=== PATIENT | female | born 1940 | race Caucasian/White ===

== ENCOUNTER → 2017-08-13 11:05 | Outpatient (CLI) | payer MEDICARE, OTHER ==
[2016-08-18 13:28] VITALS: BMI 29.1
[~2017-08-13 11:05] MED LIST: ACETAMINOPHEN-C1 TAB PO; ATIVAN0.5 MG PO; BIOTIN5 MG PO; CALCIUM 600+D T1 TA1 PO; CALTRATE-600600 MG; CHILDREN'S ASPI81 MG PO; COLACE100 MG PO; COREG12.5 MG PO; DULCOLAX10 MG/SUPP RC; EVISTA60 MG PO; K-DUR20 MEQ PO; LEVAQUIN250 MG PO; MEGACE400 MG/10 PO; MIRALAX17 GM PO; MOTRIN400 MG PO; MULTIPLE VITAMI1 TA1 PO; NARCAN INJ0.4 MG/ML IV; NORCO 10/325 TA1 TA1 PO; NORCO 5/325 TAB1 TA1 PO; ONDANSETRON4 MG/2 M3 IV; PHENERGAN25 M1 PO; POVIDONE-IODINE30 GM TP; PRAVACHOL40 MG PO; PRILOSEC20 MG PO; PROTONIX40 MG PO; PROVENTIL/2.5 MG/3 M NEB; RESTORIL15 MG PO; SENOKOT-S TABLE1 TAB PO; SYSTANE 0.3-0.4%5 ML EACH EYE; TUMS500 MG PO; ZOLOFT50 MG PO
[2017-08-13 11:52] LABS: ALBUMIN 3.4 g/dL (3.4-5.0); ALKALINE PHOSPHATASE 60 U/L (46-116); ALT (SGPT) 24 U/L (10-68); BILIRUBIN - TOTAL 0.41 mg/dL (0.2-1.3); CALC OSMOLALITY 279 mosm/kg (275-300); CALCIUM 8.7 mg/dL (8.5-10.1); CARBON DIOXIDE 26.5 mmol/L (21.0-32.0); CHLORIDE - SERUM 107 mmol/L (98-107); CHOLESTEROL, TOTAL 164 mg/dL (0-200); CREATININE - SERUM 0.6 mg/dL (0.6-1.3); GLUCOSE 94 mg/dL (74-106); HDL CHOLESTEROL 41 mg/dL (32-96); LDL CHOLESTEROL 92 mg/dL (0-100); LDL-HDL RATIO 2.2 ratio (1.5-3.5); POTASSIUM - SERUM 3.8 mmol/L (3.5-5.1); PROTEIN - SERUM 7.7 g/dL (6.4-8.2); SODIUM 141 mmol/L (136-145); TRIGLYCERIDE 159 mg/dL (30-200); UREA NITROGEN 10 mg/dL (7-18); eGFR NON AFRICAN AMERICAN > 90 mL/min (90-120)
== END | disposition home or self-care (01) ==
LOC: D.LABREF 11:05
PROVIDERS: Emergency Medicine
DX: I25.10 Atherosclerotic heart disease of native coronary artery without angina pectoris (principal); E78.5 Hyperlipidemia, unspecified

== ENCOUNTER → 2018-07-27 18:35 | Outpatient (CLI) | payer MEDICARE, OTHER ==
[2016-08-18 13:28] VITALS: BMI 29.1
[2018-07-27 19:47] LABS: BASOPHILS 0.8 % (0-2); EOSINOPHILS 4.1 % (0-7); HEMATOCRIT 39.3 % (36.0-48.0); HEMOGLOBIN 12.3 g/dL (12-16); IMMATURE GRANULOCYTES 0.4 % (0-5); LYMPHOCYTES 33.8 % (15-50); MCH 26.7 pg (26.0-34.0); MCHC 31.3 g/dL (31.0-37.0); MCV 85.4 fL (80.0-100.0); MEAN PLATELET VOLUME 9.2 fL (7.4-10.4); MONOCYTES 6.1 % (2-11); NEUTROPHILS 54.8 % (40-80); RDW 15.9 % (11.5-14.5)
[2018-07-27 20:06] LABS: PLATELET COUNT 291 10x3/uL (130-400)
[2018-07-27 20:09] LABS: APPEARANCE CLEAR (CLEAR); COLOR YELLOW (YELLOW); NITRITE NEGATIVE (NEGATIVE); PROTEIN TRACE mg/dL (NEGATIVE)
[2018-07-27 20:10] LABS: BILIRUBIN NEGATIVE (NEGATIVE); GLUCOSE NEGATIVE (NEGATIVE); KETONE NEGATIVE (NEGATIVE); RED CELLS - URINE 0-5 /hpf (0-5); UROBILINOGEN NORMAL (NORMAL)
[2018-07-27 20:11] LABS: BACTERIA MANY /hpf (NONE SEEN); CALCIUM OXALATE CRYSTALS 0-5 /hpf (NONE SEEN); EPITHELIAL CELLS 0-5 /hpf (0-5)
[2018-07-27 20:17] LABS: ALBUMIN 2.9 g/dL (3.4-5.0); ALKALINE PHOSPHATASE 79 U/L (46-116); ALT (SGPT) 23 U/L (10-68); BILIRUBIN - TOTAL 0.19 mg/dL (0.2-1.3); CALC OSMOLALITY 282 mosm/kg (275-300); CALCIUM 8.5 mg/dL (8.5-10.1); CARBON DIOXIDE 26.3 mmol/L (21.0-32.0); CHLORIDE - SERUM 103 mmol/L (98-107); CREATININE - SERUM 0.7 mg/dL (0.6-1.3); GLUCOSE 80 mg/dL (74-106); POTASSIUM - SERUM 3.6 mmol/L (3.5-5.1); SODIUM 143 mmol/L (136-145); UREA NITROGEN 10 mg/dL (7-18); eGFR NON AFRICAN AMERICAN 86 mL/min (90-120)
== END | disposition home or self-care (01) ==
LOC: D.LABREF 18:35
PROVIDERS: Emergency Medicine
DX: M54.9 Dorsalgia, unspecified (principal); N32.89 Other specified disorders of bladder

== ENCOUNTER → 2019-01-01 18:55 | Outpatient (CLI) | payer MEDICARE, OTHER ==
[2016-08-18 13:28] VITALS: BMI 29.1
[2019-01-01 19:16] LABS: APPEARANCE CLEAR (CLEAR); BILIRUBIN NEGATIVE (NEGATIVE); COLOR YELLOW (YELLOW); GLUCOSE NEGATIVE (NEGATIVE); KETONE NEGATIVE (NEGATIVE); NITRITE POSITIVE (NEGATIVE); PROTEIN 1+ mg/dL (NEGATIVE); UROBILINOGEN NORMAL (NORMAL)
[2019-01-01 19:18] LABS: BACTERIA MODERATE /hpf (NONE SEEN); EPITHELIAL CELLS 0-5 /hpf (0-5); WHITE CELLS - URINE 0-5 /hpf (0-5)
== END | disposition home or self-care (01) ==
LOC: D.LABREF 18:55
PROVIDERS: Family Medicine
DX: N39.0 Urinary tract infection, site not specified (principal)

== ENCOUNTER 2019-04-19 10:26 | Day surgery (SDC) | payer MEDICARE ==
[2019-04-19 10:56] LABS: HEMATOCRIT 39.6 % (36.0-48.0); HEMOGLOBIN 13.1 g/dL (12-16); MCH 28.4 pg (26.0-34.0); MCHC 33.1 g/dL (31.0-37.0); MCV 85.9 fL (80.0-100.0); MEAN PLATELET VOLUME 9.8 fL (7.4-10.4); RBC 4.61 10x6/uL (4.00-5.40); RDW 15.7 % (11.5-14.5)
[2019-04-19] MEDS ORDERED: NORVASC5 MG PO (13:10)
[2019-04-19] MEDS ORDERED: DEXILANT60 MG PO (13:12)
[2019-04-19] MEDS ORDERED: ATIVAN1 MG PO (13:12)
[2019-04-19] MEDS ORDERED: METHENAMINE HIPP1 GM PO (13:16)
[2019-04-19] MEDS ORDERED: MYRBETRIQ50 MG PO (13:18)
[2019-04-19] MEDS ORDERED: MEGACE40 MG PO (13:21)
[2019-04-19] MEDS ORDERED: CARAFATE1 G PO (13:22)
[2019-04-19] MEDS ORDERED: NUTRISOURCE FI1 EACH PO (13:24)
[2019-04-19] MEDS ORDERED: MULTI-DAY VITAM1 TAB PO (13:25)
[2019-04-19] MEDS ORDERED: CITRACAL + D E1 EACH PO (13:26)
[2019-04-19] MEDS ORDERED: OXYBUTYNIN CHLOR5 MG PO (13:26)
[2019-04-19] MEDS ORDERED: NYSTATIN15 GM TOPICAL (13:27)
[2019-04-19] MEDS ORDERED: ASCORBIC ACID500 MG PO (13:28)
[2019-04-19] MEDS ORDERED: HYDROCODON-ACET15 ML PO (13:29)
[2019-04-19] MEDS ORDERED: ATARAX 25 MG TA25 MG PO (13:30)
[2019-04-19] MEDS ORDERED: ZOFRAN ODT4 MG/UDTAB PO (13:30)
[2019-04-19] MEDS ORDERED: KENALOG 0.1 % 115 GM TOPICAL (13:31)
[2019-04-19] MEDS ORDERED: ACETAMINOPHEN325 MG PO (13:31)
[2019-04-19] MEDS ORDERED: VOLTAREN100 GM TOPICAL (13:32)
[2019-04-19 13:33] VITALS: BP 141/71; BMI 25.0
--- NOTE | 2019-04-20 12:46 | OP ---
PATIENT NAME: KEHINDE FLORES MEDICAL RECORD: [id number] :40 LOCATION:D[facility] ADMISSION DATE: SURGEON: FILIBERTO WILKINSON MD DATE OF OPERATION: 04/19/2019 SURGEON: Filiberto Wilkinson MD ANESTHESIA: TIVA by Rafat Shields CRNA DIAGNOSIS: Pacemaker site erosion, InterStim pacemaker. PROCEDURE: Removal of infected pacemaker and lead. SPECIMENS: 1. InterStim pacemaker and lead. 2. Wound culture swabs. FINDINGS: Lower edge of the InterStim pacemaker has eroded through the skin. Some purulent fluid was found adjacent to the sides of the pacemaker. ESTIMATED BLOOD LOSS: Minimal. CLINICAL HISTORY: This is a 78-year-old female who had issues with urge urinary incontinence as well as fecal incontinence. She had the InterStim pacemaker device installed by Dr. Boykin in 03/2013. By 10/2013, she was complaining of pain at the pacemaker insertion site. Dr. Boykin put her on antibiotics at that time. Since then, the pacemaker itself had gradually worked its way towards the surface of the skin. About 2 months ago, the patient's son said that the pacemaker was visible just underneath the skin surface. Finally, about 1 week ago, the pacemaker metal broke through the skin surface and now it is exposed. She comes to have this device removed. She does not want to have a new device put back in. SHE IS ALLERGIC TO CLINDAMYCIN, LEVAQUIN, AND SULFA. We gave her Ancef manager combination to the OR. DESCRIPTION OF PROCEDURE: The patient was given IV sedation in the prone position. She was prepped and draped. The inferior edge of the pacemaker was already eroding through the skin for about 2 cm. I infiltrated the skin surrounding this area with lidocaine with epinephrine. A 1% lidocaine was used. The incision was lengthened over the pacemaker device using the Bovie. The pacemaker device was then grasped using an Allis clamp and then it was completely removed. Within the cavity that the pacemaker device was held and there was some fluid, which was cloudy. We obtain culture swabs of this fluid. By tucking gently on the pacemaker and its attached lead, I could see the insertion point of the electrode into the S3 foramen. This area was infiltrated with lidocaine containing epinephrine. A small stab incision was made here overlying the sacral foramen. A hemostat was then used to grasp the lead and remove it entirely. Because the lead has tines on it preventing backwards migration, the lead was cut proximal to the area of the tines. Then the entire lead could be removed and the entire pacemaker with its lead and fragment of the lead was sent to pathology for identification. The area of the lead implantation is still sterile and we closed that with a staple. The wound was irrigated out using normal saline. Normal saline wet-to-dry dressings with Kerlix 2 inches infiltrated with saline was placed into the wound for packing. She has [facility]. I have given orders for [employer] [facility] to change the packing once a day. In the future, I may switch her over to a wound OPERATIVE REPORT [id number] KEHINDE FLORES VAC to hasten the healing. I will see her in followup in one month's time to check on wound healing. TRANSINT:[id number] Voice Confirmation ID: [id number] DOCUMENT ID: [id number] FILIBERTO WILKINSON MD at 1246 CC: [id number] DICTATION DATE: 04/19/191807 PAPER SALES REPRESENTATIVE: 04/19/19 2338 [facility] 04/19/19 [facility] [address] [id number]
[2019-04-26 14:12] LABS: AEROBE ID Final report (())
== END 2019-04-19 19:10 | disposition other institution (70) ==
LOC: D.OPS 10:26 → D.PAN 12:45 → D.OPS 12:50
PROVIDERS: Anesthesiology; ATTEND Urology
DX: T83.590A Infection and inflammatory reaction due to implanted urinary neurostimulation device, initial encounter (principal); R32 Unspecified urinary incontinence; R15.9 Full incontinence of feces; Z01.812 Encounter for preprocedural laboratory examination; Z88.1 Allergy status to other antibiotic agents; Z88.2 Allergy status to sulfonamides

== ENCOUNTER → 2019-05-14 16:46 | Outpatient (CLI) | payer MEDICARE ==
[2019-04-19 13:33] VITALS: BMI 25.0
[~2019-05-14 16:46] MED LIST changes: +ACETAMINOPHEN325 MG PO; +ASCORBIC ACID500 MG PO; +ATARAX 25 MG TA25 MG PO; +ATIVAN1 MG PO; +CARAFATE1 G PO; +CITRACAL + D E1 EACH PO; +DEXILANT60 MG PO; +HYDROCODON-ACET15 ML PO; +KENALOG 0.1 % 115 GM TOPICAL; +MEGACE40 MG PO; +METHENAMINE HIPP1 GM PO; +MULTI-DAY VITAM1 TAB PO; +MYRBETRIQ50 MG PO; +NORVASC5 MG PO; +NUTRISOURCE FI1 EACH PO; +NYSTATIN15 GM TOPICAL; +OXYBUTYNIN CHLOR5 MG PO; +VOLTAREN100 GM TOPICAL; +ZOFRAN ODT4 MG/UDTAB PO
[2019-05-14 19:21] LABS: APPEARANCE HAZY (CLEAR); BILIRUBIN NEGATIVE (NEGATIVE); COLOR YELLOW (YELLOW); GLUCOSE NEGATIVE (NEGATIVE); KETONE NEGATIVE (NEGATIVE); NITRITE POSITIVE (NEGATIVE); PROTEIN NEGATIVE (NEGATIVE); UROBILINOGEN NORMAL (NORMAL)
[2019-05-14 19:22] LABS: BACTERIA MANY /hpf (NONE SEEN); EPITHELIAL CELLS 0-5 /hpf (0-5); RED CELLS - URINE 0-5 /hpf (0-5)
== END | disposition home or self-care (01) ==
LOC: D.LABREF 16:46
PROVIDERS: ATTEND Urology
DX: R68.89 Other general symptoms and signs (principal)

== ENCOUNTER → 2019-05-22 15:08 | Outpatient (CLI) | payer MEDICARE ==
[~2019-05-22] VITALS: Ht 154.9 cm; Wt 59.1 kg
[2019-05-22 15:56] LABS: BASOPHILS 0.7 % (0-2); EOSINOPHILS 3.9 % (0-7); HEMATOCRIT 39.5 % (36.0-48.0); HEMOGLOBIN 12.9 g/dL (12-16); IMMATURE GRANULOCYTES 0.1 % (0-5); LYMPHOCYTES 38.6 % (15-50); MCH 28.4 pg (26.0-34.0); MCHC 32.7 g/dL (31.0-37.0); MCV 86.8 fL (80.0-100.0); MEAN PLATELET VOLUME 9.8 fL (7.4-10.4); NEUTROPHILS 48.7 % (40-80); PLATELET COUNT 253 10x3/uL (130-400); RBC 4.55 10x6/uL (4.00-5.40); RDW 15.3 % (11.5-14.5); WBC 7.1 10x3/uL (4.8-10.8)
--- NOTE | 2019-05-22 15:58 | NUR ---
1545-RECD TO ROOM 2518 FOR MIDLINE AND IV ANTIBIOTIC INFUSION. CARMELITA STOREY RN WITH VASCULAR ACCESS NOTIFIED OF PTS ARRIVAL AND ROOM NUMBER. 1555-CARMELITA HERE, EXPLAINS PROCEDURE TO PATIENT AND SON. QUESTIONS ANSWERED.
[2019-05-22 16:23] LABS: CREATININE - SERUM 0.9 mg/dL (0.6-1.3)
[2019-05-22 16:54] VITALS: Ht 154.9 cm; Wt 59.1 kg
--- NOTE | 2019-05-22 17:38 | NUR ---
1720-iv antibiotic complete and line flushed with saline and hep flush. 1725-regular dinner tray served. 1730-discharge instructions reviewed with patient and son. 1740-owasso notified to come pick patient up. 1745-discharged via private wheelchair.
== END | disposition home or self-care (01) ==
LOC: D.OPS 15:08
PROVIDERS: ATTEND Urology
DX: N30.00 Acute cystitis without hematuria (principal)

== ENCOUNTER → 2019-05-28 16:42 | Outpatient (CLI) | payer MEDICARE ==
[2019-05-22 16:54] VITALS: BMI 24.6
[2019-05-28 16:53] LABS: BASOPHILS 0.4 % (0-2); EOSINOPHILS 3.4 % (0-7); HEMATOCRIT 35.6 % (36.0-48.0); HEMOGLOBIN 11.8 g/dL (12-16); IMMATURE GRANULOCYTES 0.1 % (0-5); LYMPHOCYTES 38.5 % (15-50); MCHC 33.1 g/dL (31.0-37.0); MCV 84.6 fL (80.0-100.0); MEAN PLATELET VOLUME 9.8 fL (7.4-10.4); MONOCYTES 8.7 % (2-11); NEUTROPHILS 48.9 % (40-80); PLATELET COUNT 251 10x3/uL (130-400); RBC 4.21 10x6/uL (4.00-5.40); RDW 15.3 % (11.5-14.5); WBC 7.6 10x3/uL (4.8-10.8)
[2019-05-28 17:01] LABS: CREATININE - SERUM 0.7 mg/dL (0.6-1.3)
== END | disposition home or self-care (01) ==
LOC: D.LABREF 16:42
PROVIDERS: ATTEND Nurse Practitioner
DX: T83.59 Infection and inflammatory reaction due to prosthetic device, implant and graft in urinary system (principal); T83.19 Other mechanical complication of other urinary devices and implants; I25.10 Atherosclerotic heart disease of native coronary artery without angina pectoris

== ENCOUNTER → 2019-06-03 12:54 | Outpatient (CLI) | payer MEDICARE ==
[2019-05-22 16:54] VITALS: BMI 24.6
[2019-06-03 14:44] LABS: APPEARANCE CLEAR (CLEAR); BILIRUBIN NEGATIVE (NEGATIVE); COLOR YELLOW (YELLOW); GLUCOSE NEGATIVE (NEGATIVE); KETONE NEGATIVE (NEGATIVE); NITRITE NEGATIVE (NEGATIVE); PROTEIN NEGATIVE (NEGATIVE); SPECIFIC GRAVITY 1.015 (1.005-1.020); UROBILINOGEN NORMAL (NORMAL)
[2019-06-03 14:45] LABS: BACTERIA FEW /hpf (NONE SEEN); CALCIUM OXALATE CRYSTALS 0-5 /hpf (NONE SEEN); RED CELLS - URINE 0-5 /hpf (0-5); WHITE CELLS - URINE 0-5 /hpf (0-5)
== END | disposition home or self-care (01) ==
LOC: D.LABREF 12:54
PROVIDERS: ATTEND Urology
DX: Z87.440 Personal history of urinary (tract) infections (principal)

== ENCOUNTER → 2019-07-09 19:46 | Outpatient (CLI) | payer MEDICARE ==
[2019-05-22 16:54] VITALS: BMI 24.6
[2019-07-09 21:04] LABS: APPEARANCE HAZY (CLEAR); BILIRUBIN NEGATIVE (NEGATIVE); COLOR YELLOW (YELLOW); GLUCOSE NEGATIVE (NEGATIVE); KETONE NEGATIVE (NEGATIVE); NITRITE NEGATIVE (NEGATIVE); PROTEIN 1+ mg/dL (NEGATIVE); UROBILINOGEN NORMAL (NORMAL)
[2019-07-09 21:05] LABS: BACTERIA MANY /hpf (NONE SEEN); EPITHELIAL CELLS 0-5 /hpf (0-5)
== END | disposition home or self-care (01) ==
LOC: D.LABREF 19:46
PROVIDERS: ATTEND Urology
DX: N31.9 Neuromuscular dysfunction of bladder, unspecified (principal); N39.0 Urinary tract infection, site not specified; R53.83 Other fatigue; R41.0 Disorientation, unspecified

== ENCOUNTER → 2019-07-24 12:19 | Outpatient (CLI) | payer MEDICARE ==
[2019-05-22 16:54] VITALS: BMI 24.6
[2019-07-24 15:32] LABS: APPEARANCE CLOUDY (CLEAR); BACTERIA MANY /hpf (NONE SEEN); BILIRUBIN NEGATIVE (NEGATIVE); COLOR YELLOW (YELLOW); EPITHELIAL CELLS 0-5 /hpf (0-5); GLUCOSE NEGATIVE (NEGATIVE); KETONE NEGATIVE (NEGATIVE); NITRITE NEGATIVE (NEGATIVE); PROTEIN TRACE mg/dL (NEGATIVE); RED CELLS - URINE 0-5 /hpf (0-5); SPECIFIC GRAVITY 1.015 (1.005-1.020); UROBILINOGEN NORMAL (NORMAL)
[2019-07-24 15:33] LABS: AMORPHOUS SEDIMENT <1+ /lpf (NONE SEEN); MUCUS >1+ /lpf (NONE SEEN)
== END | disposition home or self-care (01) ==
LOC: D.LABREF 12:19
PROVIDERS: ATTEND Urology
DX: N39.0 Urinary tract infection, site not specified (principal); N39.41 Urge incontinence; Z87.440 Personal history of urinary (tract) infections

== ENCOUNTER → 2019-08-09 10:49 | Outpatient (CLI) | payer MEDICARE ==
[2019-05-22 16:54] VITALS: BMI 24.6
[2019-08-09 11:18] LABS: APPEARANCE HAZY (CLEAR); BILIRUBIN NEGATIVE (NEGATIVE); COLOR STRAW (YELLOW); GLUCOSE NEGATIVE (NEGATIVE); KETONE NEGATIVE (NEGATIVE); NITRITE NEGATIVE (NEGATIVE); PROTEIN NEGATIVE (NEGATIVE); SPECIFIC GRAVITY 1.005 (1.005-1.020); UROBILINOGEN NORMAL (NORMAL)
[2019-08-09 11:21] LABS: RED CELLS - URINE 0-5 /hpf (0-5)
[2019-08-09 11:22] LABS: BACTERIA FEW /hpf (NEGATIVE); EPITHELIAL CELLS 0-5 /hpf (0-5)
== END | disposition home or self-care (01) ==
LOC: D.LABREF 10:49
PROVIDERS: ATTEND Urology
DX: N39.0 Urinary tract infection, site not specified (principal); N39.41 Urge incontinence; Z87.440 Personal history of urinary (tract) infections; N31.8 Other neuromuscular dysfunction of bladder

== ENCOUNTER → 2019-08-14 18:10 | Outpatient (CLI) | payer MEDICARE ==
[2019-05-22 16:54] VITALS: BMI 24.6
[2019-08-14 18:27] LABS: APPEARANCE HAZY (CLEAR); BILIRUBIN NEGATIVE (NEGATIVE); COLOR YELLOW (YELLOW); GLUCOSE NEGATIVE (NEGATIVE); KETONE NEGATIVE (NEGATIVE); NITRITE POSITIVE (NEGATIVE); PROTEIN TRACE mg/dL (NEGATIVE); SPECIFIC GRAVITY 1.015 (1.005-1.020); UROBILINOGEN NORMAL (NORMAL)
[2019-08-14 18:28] LABS: BACTERIA MANY /hpf (NEGATIVE); EPITHELIAL CELLS 0-5 /hpf (0-5); WHITE CELLS - URINE >50 /hpf (NEGATIVE)
== END | disposition home or self-care (01) ==
LOC: D.LABREF 18:10
PROVIDERS: ATTEND Urology
DX: N39.0 Urinary tract infection, site not specified (principal); N39.41 Urge incontinence; N31.8 Other neuromuscular dysfunction of bladder; Z87.440 Personal history of urinary (tract) infections

== ENCOUNTER → 2019-09-03 10:05 | Outpatient (CLI) | payer MEDICARE ==
[2019-05-22 16:54] VITALS: BMI 24.6
[2019-09-03 11:01] LABS: APPEARANCE HAZY (CLEAR); COLOR YELLOW (YELLOW); SPECIFIC GRAVITY 1.015 (1.005-1.020)
[2019-09-03 11:02] LABS: BILIRUBIN NEGATIVE (NEGATIVE); GLUCOSE NEGATIVE (NEGATIVE); KETONE NEGATIVE (NEGATIVE); NITRITE NEGATIVE (NEGATIVE); PROTEIN NEGATIVE (NEGATIVE); UROBILINOGEN NORMAL (NORMAL)
[2019-09-03 11:04] LABS: BACTERIA FEW /hpf (NEGATIVE); EPITHELIAL CELLS 0-5 /hpf (0-5); RED CELLS - URINE 0-5 /hpf (0-5); WHITE CELLS - URINE 0-5 /hpf (NEGATIVE)
== END | disposition home or self-care (01) ==
LOC: D.LABREF 10:05
PROVIDERS: ATTEND Urology
DX: N39.41 Urge incontinence (principal); N31.8 Other neuromuscular dysfunction of bladder; Z87.440 Personal history of urinary (tract) infections

== ENCOUNTER → 2019-09-19 10:00 | Outpatient (CLI) | payer MEDICARE ==
[2019-05-22 16:54] VITALS: BMI 24.6
[2019-09-19 11:23] LABS: AMORPHOUS SEDIMENT <1+ /lpf (NONE SEEN); APPEARANCE TURBID (CLEAR); BACTERIA MANY /hpf (NEGATIVE); BILIRUBIN NEGATIVE (NEGATIVE); CALCIUM OXALATE CRYSTALS 0-5 /hpf (NONE SEEN); COLOR YELLOW (YELLOW); EPITHELIAL CELLS 0-5 /hpf (0-5); GLUCOSE NEGATIVE (NEGATIVE); KETONE NEGATIVE (NEGATIVE); MUCUS <1+ /lpf (NONE SEEN); NITRITE POSITIVE (NEGATIVE); PROTEIN 1+ mg/dL (NEGATIVE); RED CELLS - URINE 0-5 /hpf (0-5); UROBILINOGEN NORMAL (NORMAL)
[2019-09-19 11:24] LABS: GRANULAR CAST OCC /lpf (NONE SEEN); HYALINE CAST RARE /lpf (NONE SEEN)
== END | disposition home or self-care (01) ==
LOC: D.LABREF 10:00
PROVIDERS: ATTEND Urology
DX: Z87.440 Personal history of urinary (tract) infections (principal); N31.8 Other neuromuscular dysfunction of bladder; N39.41 Urge incontinence

== ENCOUNTER → 2019-10-08 10:21 | Outpatient (CLI) | payer MEDICARE ==
[2019-05-22 16:54] VITALS: BMI 24.6
[2019-10-08 11:52] LABS: APPEARANCE HAZY (CLEAR); BACTERIA FEW /hpf (NEGATIVE); BILIRUBIN NEGATIVE (NEGATIVE); COLOR YELLOW (YELLOW); EPITHELIAL CELLS 0-5 /hpf (0-5); GLUCOSE NEGATIVE (NEGATIVE); KETONE NEGATIVE (NEGATIVE); NITRITE NEGATIVE (NEGATIVE); PROTEIN 1+ mg/dL (NEGATIVE); SPECIFIC GRAVITY 1.015 (1.005-1.020); UROBILINOGEN NORMAL (NORMAL); WHITE CELLS - URINE OCC /hpf (NEGATIVE)
[2019-10-08 11:53] LABS: CALCIUM OXALATE CRYSTALS 0-5 /hpf (NONE SEEN); MUCUS <1+ /lpf (NONE SEEN)
== END | disposition home or self-care (01) ==
LOC: D.LABREF 10:21
PROVIDERS: ATTEND Urology
DX: N31.8 Other neuromuscular dysfunction of bladder (principal); Z87.440 Personal history of urinary (tract) infections; N39.41 Urge incontinence

== ENCOUNTER 2019-10-25 06:09 | Day surgery (SDC) | payer MEDICARE ==
[~2019-10-25] VITALS: Ht 154.9 cm; Wt 61.2 kg
[2019-10-25 06:45] LABS: HEMOGLOBIN 12.8 g/dL (12-16); MCH 28.1 pg (26.0-34.0); MCV 87.9 fL (80.0-100.0); MEAN PLATELET VOLUME 9.2 fL (7.4-10.4); RBC 4.55 10x6/uL (4.00-5.40); RDW 15.1 % (11.5-14.5); WBC 7.7 10x3/uL (4.8-10.8)
[2019-10-25 07:20] VITALS: Ht 154.9 cm; Wt 61.2 kg
--- NOTE | 2019-10-25 10:43 | NUR ---
1025-REC'D FROM SURGERY. ALERT AND AWAKE. VSS. DRESSINGS CDI. CL IN EASY REACH.FAMILY AT BEDSIDE.
--- NOTE | 2019-10-25 12:08 | OP ---
PATIENT NAME: KEHINDE FLORES MEDICAL RECORD: [id number] :40 LOCATION:NADER ADMISSION DATE: SURGEON: JESSICA WILKINSON MD DATE OF OPERATION: 10/25/2019 SURGEON: Jessica Wilkinson MD ANESTHESIA: TIVA by Shane Suggs CRNA. DIAGNOSES: Urge urinary incontinence, fecal incontinence. PROCEDURES: Axonics stage I, right S3 nerve root. FINDINGS: Good alex and toe flexion response in the right S3 nerve root. BLOOD LOSS: None. CLINICAL HISTORY: This is a 79-year-old female who has intractable urge urinary incontinence. She failed response to oral medication as well as intravesical Botox injection. She had the InterStim device placed by Dr. Boykin. It did work for her. However, the pacemaker eroded through the skin and she had a deep wound infection. When I saw her, I had to remove this pacemaker and the electrode and place a wound VAC on. She has completely healed from that. She wants to try the Axonics device. She also has episodes of fecal incontinence, which increases her risk of urinary tract infection. SHE IS ALLERGIC TO CLINDAMYCIN, LEVAQUIN, AND SULFA. She was given Ancef public relations consultant to the OR. DESCRIPTION OF PROCEDURE: The patient was given IV sedation in the prone position. She was then prepped and draped. Fluoroscopy was used to identify the role of sacral foramina as well as the level of the S3 foramen. 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 The S3 foramen was entered into on both sides. We tested each side in turn. It was evident that the right side was far more sensitive than the left. The spinal needle on the left was therefore removed and we continued on the right side. A small incision was made at the base of the needle on the skin. A 15-blade was used for this. The stylet of the spinal needle was removed and an extra-long stylet was placed down the lumen of the needle. Then, the spinal needle was removed. Over the extra-long stylet, we placed the trocar dilator with a sheath. This was placed down to where the radiopaque marker was intermediate in the sacral bone depths. The dilator and the trocar were then removed as well as the extra-long stylet, leaving the sheath only in place. Through the lumen of the sheath, we placed the permanent 4 channel electrode. This has a curve on the end and the curve extends laterally. The electrode was initially placed so that channel #2 is placed at the level of the anterior bone of the sacrum. When we tested this configuration, it was evident that channel #0 and #1 did not have any biological effect. I therefore pulled the lead back under fluoroscopic guidance, so that the channel #1 was at the level of the anterior plate of the sacral bone. At this point, we had excellent responses when testing with all 4 channels. Channels #1 and #2 were especially sensitive. At this point, the tunneling device was then used to bring the end of the permanent electrode to a future permanent pacemaker site near the right iliac crest. Under fluoroscopy, I marked at the level of the right iliac crest. Four cm below this and heading as laterally as possible the lead would allow, was marked out a transverse incision about 1 cm in length for the placement of the permanent pacemaker. This happens to correspond to the OPERATIVE REPORT [id number] KEHINDE FLORES same plane as the previous InterStim pacemaker implant. I tried to avoid the actual previous site in order to prevent any complications. A 1 cm skin incision was then made using a 15-blade. The tunneling device was used to bring the temporary test electrode to this new site. At this point, the end of the permanent electrode was connected to the temporary test electrode using a torque-limiting screwdriver to tighten the lacquer coater. The tunneling device was then used again to bring the end of the temporary test electrode out to the skin at a point few centimeters cranial to the actual sacral nerve root insertion site. The wound on the right iliac crest region was irrigated out using saline. A 2-layered closure was made using simple interrupted Vicryls for the first layer. Then, a running subcuticular suture of 4-0 Monocryl was used to close the skin. This was further reinforced with Steri-Strips and a dressing. I will see the patient in followup next week to check on her symptoms. If she has complete relief of her symptoms or at least 50% improvement, then she can go to a stage II procedure. Otherwise, we will schedule for removal of the electrodes that are in her body. TRANSINT:[id number] Voice Confirmation ID: [id number] DOCUMENT ID: [id number] JESSICA WILKINSON MD at 1208 CC: [id number] DICTATION DATE: 10/25/19 1030 FUEL SYSTEM MAINTENANCE WORKER: 10/25/19 [address] [id number] [place] [id number]
--- NOTE | 2019-10-25 13:01 | NUR ---
1045-FULL LIQUID TRAY TO ROOM. PLEASANT.
--- NOTE | 2019-10-25 13:02 | NUR ---
1124-TYLENOL#3 1 BY MOUTH ADMINISTERED FOR PAIN TO BACK.
--- NOTE | 2019-10-25 13:03 | NUR ---
1128-DISCHARGE CRITERIA MET. REVIEWED POST OPERATIVE INSTRUCTIONS WITH SON AND PT. VERBALIZED UNDERSTANDING.
--- NOTE | 2019-10-25 13:04 | NUR ---
1130-IV REMOVED FROM RIGHT ARM WITH CATH INTACT. DISPOSED INTO SHARPS,COVERED SITE WITH GUAZE,SECURED WITH MEDIPORE TAPE.VSS. LAWRENCE PATENT DRAINING YELLOW URINE. DRESSINGS TO BACK CDI.
--- NOTE | 2019-10-25 13:05 | NUR ---
1155- ASSISTED PT WITH DRESSING. LAWRENCE PATENT DRAINING YELLOW URINE BY GRAVITY. REVIEWED WITH PT,SON AND WHOMEVER PICKED PT UP FROM FACILITY ON CLAMPING AND MEASURING [employer]UAL. VERBALIZED UNDERSTANDING. ESCORTED OUT VIA W/C WITH FACILITY TO DRIVE HOME.
== END 2019-10-25 11:55 | disposition home or self-care (01) ==
LOC: D.OPS 06:09 → D.PAN 08:05 → D.OPS 08:30 → D.PAN 08:30 → D.OPS 11:55 → D.PAN 14:00
PROVIDERS: Anesthesiology; ATTEND Urology
DX: N39.41 Urge incontinence (principal); R15.9 Full incontinence of feces

== ENCOUNTER 2019-11-01 06:05 | Day surgery (SDC) | payer MEDICARE ==
[~2019-11-01] VITALS: Ht 154.9 cm; Wt 61.2 kg
[2019-11-01 06:37] LABS: HEMOGLOBIN 12.7 g/dL (12-16); MCH 28.5 pg (26.0-34.0); MCHC 32.6 g/dL (31.0-37.0); MCV 87.6 fL (80.0-100.0); MEAN PLATELET VOLUME 9.3 fL (7.4-10.4); RBC 4.45 10x6/uL (4.00-5.40); WBC 7.3 10x3/uL (4.8-10.8)
[2019-11-01 07:06] VITALS: Ht 154.9 cm; Wt 61.2 kg
--- NOTE | 2019-11-01 08:36 | NUR ---
STAGE ONE WIRE REMOVED AND DISPOSED OF
--- NOTE | 2019-11-01 08:45 | NUR ---
SUPRA PUBIC CATHETER REMOVED PER DR. WILKINSON
--- NOTE | 2019-11-01 09:10 | NUR ---
0852-REC'D FROM SURGERY. AWAKE AND ALERT,VSS,DENIES PAIN. DRESSING TO BACK CDI. IV PATENT TO RFA AT [facility]. VERY PLEASANT. REQUEST WATER AT BEDSIDE. FAMILY AT BEDSIDE,CL IN EASY REACH. REVIEWED DISCHARGE CRITERIA VERBALIZED UNDERSTANDING
--- NOTE | 2019-11-01 09:13 | NUR ---
FULL LIQUID TRAY TAKE TO ROOM BY TRAE.
--- NOTE | 2019-11-01 10:02 | NUR ---
0957-DISCHARGE CRITERIA MET. TOLERATED FOOD TRAY,DRESSING TO BACK CDI. VSS. REPORTS INTERMITTENT PAIN 01/21. PLEASANT WITH SON AT BEDSIDE. REVIEWED POST OPERATIVE INSTRUCTIONS AND FOLLOW UP APPOINTMENT. VERBALIZED UNDERSTANDING. REMOVED IV FROM RFA WITH CATH INTACT,DISPOSED INTO SHARPS,COVERED SITE WITH GUAZE,SECURED WITH MEDIPORE TAPE. STIMULATOR REP TO ROOM EARLIER TO REVIEW THEIR INFO WITH PT. REPORTS NO MORE QUESTIONS OR CONCERNS FROM THEM WELL.
--- NOTE | 2019-11-01 10:09 | NUR ---
1010-STAFF ASSISTED PT WITH DRESSING. ESCORTED OUT VIA W/C WITH ASSISTED LIVING [facility] AWAITING TO DRIVE PT HOME. VERY PLEASANT. DISCHARGE PAPERWORK IN HAND.
--- NOTE | 2019-11-01 11:53 | OP ---
PATIENT NAME: KEHINDE FLORES MEDICAL RECORD: [id number] :40 LOCATION:NADER ADMISSION DATE: SURGEON: JESSICA WILKINSON MD DATE OF OPERATION: 11/01/2019 SURGEON: Jessica Wilkinson MD ANESTHESIA: TIVA by Rafat Shields CRNA DIAGNOSIS: Urge urinary incontinence, fecal incontinence. PROCEDURE: Axonics stage II. BLOOD LOSS: None. CLINICAL HISTORY: This is a 79-year-old female with chronic urge urinary incontinence, which has not responded to oral medications and has also failed intravesical Botox injection. She has a chronic indwelling suprapubic tube now which was placed by another urologist. She had a trial of Axonics stage I and she had an excellent response to it. She does have some episodes of incontinence at night only still. There are no further episodes of fecal incontinence. She comes to have a stage II done. I did question her dietary habits and she does drink a lot of water. I have asked her to cut down the fluid intake after dinner. SHE IS ALLERGIC TO CLINDAMYCIN, LEVAQUIN AND SULFA. She was given Ancef location man to the OR. DESCRIPTION OF PROCEDURE: The patient was given IV sedation in the prone position. She was then prepped and draped. The old incision was reopened in the right iliac crest region. We had actually performed fluoroscopy to be sure that the pacemaker pocket would be located 4 cm below the iliac crest. This was where the old incision was. This was confirmed again with fluoroscopy today. Once the incision was opened up, the connection between the temporary transistor tester and the permanent electrode was disrupted by unlocking the locking screw with a screwdriver. The temporary transistor tester was then completely entirely removed. The pacemaker pocket was made by using an Army[employer] Chip as the dissector pushing medially from the incision. The reason for going medially is that she has an old InterStim pocket site, which was located medial to our current incision. This old scar was quite large and it would make a good landmark for her c software developer. Once we had the pocket made using the blade of the Army-[employer] Chip retractor, we then connected the pacemaker to the permanent electrode. This was tightened down using the torque-limiting screwdriver. We then placed the implant, so that the ceramic charging window was right underneath the midpoint of the old InterStim scar site. The wound was irrigated out. Two layer closure was performed. The first layer was of simple interrupted 3-0 Vicryl. The second layer was a running subcuticular 4-0 Monocryl. Steri-Strips and dressings were then applied. We then turned the patient over into the supine position on the stretcher. The patient had requested removal of the suprapubic tube. We therefore did remove the suprapubic tube and place a dressing down. I will see the patient in followup in 2 weeks' time. TRANSINT:[id number] Voice Confirmation ID: [id number] DOCUMENT ID: [id number] OPERATIVE REPORT [id number] KEHINDE FLORES, JESSICA Nathan MD at 1153 CC: [id number] DICTATION DATE: 11/01/19905 OUTREACH MANAGER: 11/01/19 1106 [facility] 11/01/[address] [id number]
== END 2019-11-01 10:10 | disposition home or self-care (01) ==
LOC: D.OPS 06:05 → D.PAN 07:30 → D.OPS 10:10
PROVIDERS: Anesthesiology; ATTEND Urology
DX: N39.41 Urge incontinence (principal); R15.9 Full incontinence of feces; I25.10 Atherosclerotic heart disease of native coronary artery without angina pectoris; I10 Essential (primary) hypertension

== ENCOUNTER → 2019-12-04 13:32 | Outpatient (CLI) | payer MEDICARE ==
[2019-11-01 07:06] VITALS: BMI 25.5
[2019-12-04 14:20] LABS: APPEARANCE HAZY (CLEAR); BILIRUBIN NEGATIVE (NEGATIVE); COLOR YELLOW (YELLOW); GLUCOSE NEGATIVE (NEGATIVE); KETONE NEGATIVE (NEGATIVE); NITRITE POSITIVE (NEGATIVE); PROTEIN TRACE mg/dL (NEGATIVE); SPECIFIC GRAVITY 1.025 (1.005-1.020); UROBILINOGEN NORMAL (NORMAL)
[2019-12-04 14:21] LABS: BACTERIA MODERATE /hpf (NEGATIVE); EPITHELIAL CELLS 0-5 /hpf (0-5); WHITE CELLS - URINE 25-50 /hpf (NEGATIVE)
[2019-12-04 14:22] LABS: RED CELLS - URINE 0-5 /hpf (0-5)
== END | disposition home or self-care (01) ==
LOC: D.LABREF 13:32
PROVIDERS: ATTEND Urology
DX: N31.8 Other neuromuscular dysfunction of bladder (principal); N39.41 Urge incontinence; Z87.440 Personal history of urinary (tract) infections

== ENCOUNTER → 2020-08-04 08:14 | Outpatient (CLI) | payer MEDICARE ==
[2019-11-01 07:06] VITALS: BMI 25.5
== END | disposition home or self-care (01) ==
LOC: D.HCCECHO 08:14
PROVIDERS: ATTEND Internal Medicine Cardiovascular Disease
DX: I25.10 Atherosclerotic heart disease of native coronary artery without angina pectoris (principal)

== ENCOUNTER 2020-08-07 06:01 | Day surgery (SDC) | payer MEDICARE ==
[~2020-08-07] VITALS: Ht 154.9 cm; Wt 54.1 kg
[2020-08-07 06:17] LABS: BASOPHILS 0.5 % (0-2); EOSINOPHILS 2.5 % (0-7); HEMATOCRIT 40.9 % (36.0-48.0); HEMOGLOBIN 13.3 g/dL (12-16); LYMPHOCYTES 39.6 % (15-50); MCH 29.2 pg (26.0-34.0); MCHC 32.5 g/dL (31.0-37.0); MCV 89.7 fL (80.0-100.0); MEAN PLATELET VOLUME 9.2 fL (7.4-10.4); MONOCYTES 8.7 % (2-11); NEUTROPHILS 48.7 % (40-80); PLATELET COUNT 217 10x3/uL (130-400); RBC 4.56 10x6/uL (4.00-5.40); RDW 14.6 % (11.5-14.5); WBC 5.7 10x3/uL (4.8-10.8)
[2020-08-07 07:04] LABS: CALC OSMOLALITY 276 mosm/kg (275-300); CALCIUM 9.8 mg/dL (8.5-10.1); CARBON DIOXIDE 24.7 mmol/L (21.0-32.0); CHLORIDE - SERUM 107 mmol/L (98-107); CREATININE - SERUM 0.7 mg/dL (0.6-1.3); GLUCOSE 89 mg/dL (74-106); POTASSIUM - SERUM 3.8 mmol/L (3.5-5.1); SODIUM 140 mmol/L (136-145); UREA NITROGEN 11 mg/dL (7-18); eGFR NON AFRICAN AMERICAN 85 mL/min (90-120)
[2020-08-07 07:45] VITALS: BP 136/78; BMI 22.5
--- NOTE | 2020-08-07 12:41 | NUR ---
1200 INCONTINET OF LARGE AMT OF URINE. BED CAHNGED 1240 REPORT GIVEN TO NATTY ON MED SURG
--- NOTE | 2020-08-07 16:24 | MORECARE ---
CASE MANAGEMENT DISCHARGE SUMMARY PATIENT: KEHINDE FLORES UNIT: [id number] ADM DATE: 08/07/20 AGE: 80 : 40 SEX: F ROOM/BED: D.2239 AUTHOR: ROHIT GUAJARDO PHYSICIAN: REFERRING PHYSICIAN: HOLLY JALLOH MD DATE OF SERVICE: 08/07/20 Discharge Plan Patient Name: KEHINDE FLORES Facility: [facility]:[place] : 1940 Planned Disposition: Anticipated Discharge Date: Discharge Date: Expected LOS: 0 Initial Reviewer: [email or web address] Initial Review Date: 08/07/2020 Generated: 08/07/20 5:23 pm Coverage Notice Reviewer: [email or web address] - Johana Negro Notice Issued Date-Time: 08/07/2020 16:21 Notice Type: Medicare Outpatient Observation Notice Notice Delivered To: Patient Relationship to Patient: Silhouette Artist Name: Delivery Method: HAND - Hand Delivered Federica Days: Prior Verbal Notification: Recipient Understood Notice: Yes Recipient Signature: Yes Med Rec Note Co-signed by Attending: Coverage Notice Comment: Patient Name: KEHINDE FLORES Page [phone] at 1624 All edits/amendments must be made on the electronic document DICTATION DATE: 08/07/201623 BLASTING ENTRY SPECIALIST: ALCIRA 08/07/201623 RPT#: [id number] DC DATE: STATUS: REG [facility] [address] [place] [address] END OF REPORT
[2020-08-07 17:41] VITALS: BP 127/91
[2020-08-07 19:59] VITALS: BP 148/70; Ht 154.9 cm; Wt 54.1 kg
[2020-08-07 20:00] VITALS: BP 133/79
[2020-08-08] VITALS: BP 138/74
--- NOTE | 2020-08-08 03:33 | NUR ---
ASSESSED AT THE BEGINNING OF THE SHIFT. PT IS ALERT AND ORIENTED, ABLE TO VERBALIZE NEEDS. HER INCISIONS SITES ARE DRESSED CLEAN DRY AND INTACT. SHE IS FLACCID TO HER LEFT SIDE AND IT IS TOTAL CARE.
[2020-08-08 04:00] VITALS: BP 130/81
--- NOTE | 2020-08-08 07:30 | NUR ---
REC'D IN BED AWAKE AND ALERT. RESP EVEN AND UNLABORED WITH NO DISTRESS NOTED. CAN EXPRESS NEEDS AND WANTS. NO C/O NOTED OR VOICED. DENIES ANY PAIN OR DISCOMFORT NOTED OR VOICED. ASSESSMENT COMPLETED. C/L IN REACH AT BEDSIDE.
[2020-08-08 08:34] VITALS: BP 135/88
[2020-08-08] MEDS ORDERED: COLACE100 MG PO (09:13)
[2020-08-08] MEDS ORDERED: MILK OF MAGNESI30 ML PO (09:13)
--- NOTE | 2020-08-08 10:26 | NUR ---
PATIENT IN BED. DENIES PAIN OR NEEDS AT THIS TIME. FREE FROM SIGNS OF DISTRESS. BED LOW POSITION, CALL LIGHT IN REACH. WILL CONTINUE TO MONITOR.
--- NOTE | 2020-08-08 11:08 | NUR ---
CALLED AND GAVE REPORT TO YENIFER FLORES AT [facility] AT THIS TIME. PT IN STABLE CONDIION UPON DEPARTURE. TOOK ALL PERAONAL BELONGING WITH HER.
--- NOTE | 2020-08-11 08:53 | MORECARE ---
CASE MANAGEMENT DISCHARGE SUMMARY PATIENT: KEHINDE FLORES UNIT: [id number] ADM DATE: 08/07/20 AGE: 80 : 40 SEX: F ROOM/BED: AUTHOR: ROHIT GUAJARDO PHYSICIAN: REFERRING PHYSICIAN: HOLLY JALLOH MD DATE OF SERVICE: 08/11/20 Discharge Plan Patient Name: KEHINDE FLORES Facility: [facility]:[place] : 1940 Planned Disposition: Anticipated Discharge Date: Discharge Date: 08/08/2020 Expected LOS: 0 Initial Reviewer: [email or web address] Initial Review Date: 08/07/2020 Generated: 08/11/20 9:53 am Coverage Notice Reviewer: [email or web address] - Johana Negro Notice Issued Date-Time: 08/07/2020 16:21 Notice Type: Medicare Outpatient Observation Notice Notice Delivered To: Patient Relationship to Patient: Slasher Machine Operator Name: Delivery Method: HAND - Hand Delivered Federica Days: Prior Verbal Notification: Recipient Understood Notice: Yes Recipient Signature: Yes Med Rec Note Co-signed by Attending: Coverage Notice Comment: Last DP export: 08/07/20 3:24 p Patient Name: KEHINDE FLORES Page [phone] at 0853 All edits/amendments must be made on the electronic document DICTATION DATE: 08/11/20 0853 BACK FACER: ALCIRA 08/11/20 0853 RPT#: [id number] DC DATE:08/08/20 STATUS: [facility] [address] [place] [address] END OF REPORT
--- NOTE | 2020-08-12 09:49 | OP ---
PATIENT NAME: KEHINDE FLORES MEDICAL RECORD: [id number] :40 LOCATION:[facility] ADMISSION DATE: SURGEON: RJEI JALLOH MD DATE OF OPERATION: 08/07/2020 PREOPERATIVE DIAGNOSES: 1. Biliary dyskinesia. 2. Hemorrhoids. 3. History of cerebrovascular accident with left-sided weakness. 4. Coronary artery disease. 5. Hypertension. 6. Gastroesophageal reflux disease. POSTOPERATIVE DIAGNOSES: 1. Biliary dyskinesia. 2. Hemorrhoids. 3. History of cerebrovascular accident with left-sided weakness. 4. Coronary artery disease. 5. Hypertension. 6. Gastroesophageal reflux disease. PROCEDURE: 1. Laparoscopic cholecystectomy. 2. PPH. SURGEON: Reji Jalloh MD REPORT OF PROCEDURE: The patient's abdomen was prepped and draped in sterile fashion. A skin incision was made on the superior aspect of the umbilicus, 0 Vicryls were placed in the fascia bilaterally and the fascia was incised with 15-blade. I then bluntly entered the peritoneal cavity and placed a 12-mm Lang port. Under direct visualization, a 5-mm trocar was placed in the epigastrium and two more 5-mm trocars were placed in right subcostal region. The gallbladder was grasped and elevated. There were some chronic inflammatory adhesions present of the surrounding fatty tissue to the gallbladder. These were all teased down carefully with blunt dissection and electrocautery. We eventually were able to dissect out the cystic artery and cystic duct. These structures were clipped proximally and distally and ligated in standard fashion. The gallbladder was then taken off the liver bed using electrocautery and placed into an Endo Catch bag. The right upper quadrant was irrigated out and any bleeding from the liver bed was treated with electrocautery. The ports and insufflation were then removed and the gallbladder was taken out through the umbilicus. The umbilical fascia was closed with interrupted 0 Vicryls times 3. The wounds were irrigated out with normal saline and infused with 10 mL of 0.25% Marcaine with epinephrine. The skin incisions were all closed with subcutaneous 5-0 Monocryl and dressed appropriately. The patient was placed in lithotomy position and the perianal region was then prepped and draped in sterile fashion. An anoscopy was performed and we could see that the patient had some external component of some hemorrhoids, mainly the patient had a prolapse. The PPH anoscope was inserted and sutured down on all 4 sides with interrupted 2-0 silks. The 2-0 Prolene was used as a pursestring and the distal rectum. We then placed the EEA stapler and pulled the pursestring tightly within it. I felt through the vaginal wall and did not feel any evidence of any tethering of the posterior vaginal wall. We then fired the EEA stapler and there was removal of a large ring of tissue. We then inspected the staple lines and there was no OPERATIVE REPORT [id number] KEHINDE FLORES sign of any active bleeding. We irrigated out the rectum with normal saline and then inserted a piece of Gelfoam dipped in Americaine. COMPLICATIONS: None. CONDITION: Stable. ANESTHESIA: General endotracheal and local. BLOOD LOSS: Minimal. TRANSINT:[id number] Voice Confirmation ID: [id number] DOCUMENT ID: [id number] REJI JALLOH MD at 0949 CC: JUAN HERNÁNDEZ [id number] DICTATION DATE: 08/07/20931 ASSEMBLER LEATHER GOODS: 08/07/20 1253 [facility] 08/08/20 [facility] [address] [id number]
== END 2020-08-08 11:26 ==
LOC: D.OPS 06:01 → D.MS 06:01 → D.OPS 08:15 → D.PAN 08:15 → D.MS 12:43 → D.OPS 08-08 11:26
PROVIDERS: ATTEND Surgery
DX: K82.8 Other specified diseases of gallbladder (principal); K64.9 Unspecified hemorrhoids; I63.9 Cerebral infarction, unspecified; I25.10 Atherosclerotic heart disease of native coronary artery without angina pectoris; I10 Essential (primary) hypertension; K21.9 Gastro-esophageal reflux disease without esophagitis; R10.9 Unspecified abdominal pain